=== PATIENT | female | born 1940 | race Caucasian/White ===

== ENCOUNTER → 2025-03-27 13:29 | Outpatient (REF) | payer OTHER, SELFPAY ==
[2025-03-27 14:27] LABS: % Basophils 1.4 % (0-2); % Eosinophils 1.6 % (0-6); % Immature Granulocytes 2.5 % (0-0.5); % Lymphocytes 6.4 % (20.5-51.1); % Neutrophils 81.1 % (42.2-75.2); Absolute Basophils 0.1 10^3/uL (0-0.2); Absolute Eosinophils 0.1 10^3/uL (0-0.7); Absolute Immature Granulocytes 0.2 10^3/uL (0-0.05); Absolute Lymphocytes 0.4 10^3/uL (1.2-3.4); Absolute Monocytes 0.5 10^3/uL (0.1-0.6); Absolute Neutrophils 5.2 10^3/uL (1.4-6.5); Hemoglobin 8.3 g/dL (12.0-16.0); Mean Corp Hgb Conc. 30.7 g/dL (33.0-37.0); Mean Corpuscular Hgb 25.9 pg (27.0-31.0); Mean Corpuscular Volume 84.1 fL (81.0-99.0); Mean Platelet Volume 9.7 fL (7.4-10.4); Nucleated Red Blood Cells % 0 %; Platelet Count 198 10^3/uL (130-400); Red Blood Cell Count 3.21 10^6/uL (4.20-5.40); Red Cell Dist. Width 23.9 % (11.5-14.5); White Blood Cell Count 6.4 10^3/uL (4.8-10.8)
[2025-03-27 14:28] LABS: Blood Urea Nitrogen 17 mg/dl (7-17); Calcium 8.9 mg/dl (8.4-10.2); Carbon Dioxide 30 mmol/L (22-30); Chloride 105 mmol/L (98-107); Glucose 85 mg/dl (70-99); Potassium 4.4 mmol/L (3.5-5.1); Sodium 136 mmol/L (135-145); eGFR > 60.00
== END ==
LOC: OLABP 13:29
PROVIDERS: ATTENDING PHYSICIAN Family Medicine
DX: J14 Pneumonia due to Hemophilus influenzae (principal); R57.9 Shock, unspecified; A41.9 Sepsis, unspecified organism; J96.01 Acute respiratory failure with hypoxia; D61.818 Other pancytopenia; I48.0 Paroxysmal atrial fibrillation; C69.50 Malignant neoplasm of unspecified lacrimal gland and duct; I27.20 Pulmonary hypertension, unspecified
CPT/HCPCS: 36415; 80048; 85025

== ENCOUNTER → 2025-03-30 10:30 | Outpatient (REF) | payer OTHER, SELFPAY ==
[2025-03-30 12:25] LABS: % Basophils 1.2 % (0-2); % Eosinophils 2.1 % (0-6); % Immature Granulocytes 0.9 % (0-0.5); % Monocytes 7.9 % (1.7-9.3); % Neutrophils 81.9 % (42.2-75.2); Absolute Basophils 0.1 10^3/uL (0-0.2); Absolute Eosinophils 0.1 10^3/uL (0-0.7); Absolute Immature Granulocytes 0.1 10^3/uL (0-0.05); Absolute Lymphocytes 0.3 10^3/uL (1.2-3.4); Absolute Monocytes 0.5 10^3/uL (0.1-0.6); Absolute Neutrophils 4.7 10^3/uL (1.4-6.5); Hematocrit 26.4 % (37.0-47.0); Hemoglobin 8.3 g/dL (12.0-16.0); Mean Corp Hgb Conc. 31.4 g/dL (33.0-37.0); Mean Corpuscular Hgb 26.3 pg (27.0-31.0); Mean Corpuscular Volume 83.8 fL (81.0-99.0); Mean Platelet Volume 9.9 fL (7.4-10.4); Nucleated Red Blood Cells % 0 %; Platelet Count 160 10^3/uL (130-400); Red Blood Cell Count 3.15 10^6/uL (4.20-5.40); White Blood Cell Count 5.7 10^3/uL (4.8-10.8)
[2025-03-30 12:36] LABS: Blood Urea Nitrogen 15 mg/dl (7-17); Calcium 8.8 mg/dl (8.4-10.2); Carbon Dioxide 28 mmol/L (22-30); Chloride 106 mmol/L (98-107); Glucose 82 mg/dl (70-99); Potassium 4.1 mmol/L (3.5-5.1); Sodium 138 mmol/L (135-145); Uric Acid 2.9 mg/dl (2.5-6.2); eGFR > 60.00
== END ==
LOC: OLABP 10:30
PROVIDERS: ATTENDING PHYSICIAN Family Medicine
DX: J14 Pneumonia due to Hemophilus influenzae (principal); R57.9 Shock, unspecified; A41.9 Sepsis, unspecified organism; J96.01 Acute respiratory failure with hypoxia; D61.818 Other pancytopenia; I48.0 Paroxysmal atrial fibrillation; C69.50 Malignant neoplasm of unspecified lacrimal gland and duct; I27.20 Pulmonary hypertension, unspecified
CPT/HCPCS: 80048; 83735; 84550; 85025

== ENCOUNTER → 2025-05-09 13:03 | Outpatient (REF) | payer OTHER, SELFPAY | LOC: PET 13:03 | PROVIDERS: ATTENDING PHYSICIAN Internal Medicine Hematology & Oncology | DX: C83.30 Diffuse large B-cell lymphoma, unspecified site (principal) | CPT/HCPCS: 78815; A9552 ==

== ENCOUNTER → 2025-05-10 15:56 | Outpatient (REF) | payer OTHER, SELFPAY | LOC: RCS 15:56 | PROVIDERS: ATTENDING PHYSICIAN Internal Medicine Hematology & Oncology; FAMILY PHYSICIAN Internal Medicine | DX: C83.30 Diffuse large B-cell lymphoma, unspecified site (principal) | CPT/HCPCS: 93306; 93356 ==

== ENCOUNTER → 2025-05-16 09:02 | Outpatient (REF) | payer OTHER, SELFPAY ==
[2025-05-16] VITALS (8 sets, daily range): BP systolic 44–165; BP diastolic 52–65
[2025-05-16 09:30] LABS: Hematocrit 36.8 % (37.0-47.0); Hemoglobin 11.5 g/dL (12.0-16.0); Mean Corp Hgb Conc. 31.3 g/dL (33.0-37.0); Mean Corpuscular Volume 84.6 fL (81.0-99.0); Nucleated Red Blood Cells % 0 %; Platelet Count 197 10^3/uL (130-400); Red Cell Dist. Width 13.7 % (11.5-14.5)
[2025-05-16 09:43] LABS: INR 1.09; PT 14.6 Sec (11.4-14.6)
[2025-05-16] MEDS: ATIVAN 0.5 MG PO (09:54)
== END ==
LOC: RADI 09:02
PROVIDERS: ATTENDING PHYSICIAN Internal Medicine Hematology & Oncology; FAMILY PHYSICIAN Internal Medicine; REFERRING PHYSICIAN Physician Assistant
DX: C83.30 Diffuse large B-cell lymphoma, unspecified site (principal); D68.8 Other specified coagulation defects
CPT/HCPCS: 36415; 38222; 77012; 85025; 85610; 88305; 88311; 88312; 88313

== ENCOUNTER → 2025-08-15 08:56 | Outpatient (REF) | payer OTHER, SELFPAY ==
[2025-08-15 09:27] LABS: Glucose 87 mg/dl (70-99)
== END ==
LOC: PET 08:56
PROVIDERS: Internal Medicine Hematology & Oncology; ATTENDING PHYSICIAN Nurse Practitioner Adult Health
DX: C83.30 Diffuse large B-cell lymphoma, unspecified site (principal)
CPT/HCPCS: 36415; 78815; 82947; A9552

== ENCOUNTER 2025-08-22 07:01 | Day surgery (SDC) | payer OTHER, SELFPAY ==
--- NOTE | 2025-08-22 07:44 | ITS.CL.IMPLP ---
[facility] - Implant Loop
Implant Loop
Procedure Report:
ILR implant
Date of Procedure: August 22, 2025
Patient : [id number]
Procedure: Insertable Loop Recorder Implant.
Indication: AF monitoring
Implant: Linq2: [employer]; Model# [id number]; Serial# [id number]
Technique: The patient was prepped and draped in the usual fashion.��Local anesthetic was applied to the left��prepectoral subcutaneous tissue. Preoperative sedation was given. A subcutaneous pocket was created with blunt dissection. Hemostasis was
excellent. The device was placed in the pocket. The incision was closed with 1 nonabsorbable suture. The skin was closed with steri-strips. The estimated blood��loss was minimal. There were no complications.
Final Programming: FVT 231 30/40 beats
����������������������������������VT 176 16 beats
����������������������������������Asystole 3 sec
����������������������������������Josep 30 bpm for 4 beats
����������������������������������AF On AF only.
Conclusion: Uncomplicated insertable loop implant.
Recommendation: Routine ILR care.
cc: Dr. Trinity Molina
== END 2025-08-22 08:20 | disposition home or self-care (01) ==
LOC: CATH 07:01
PROVIDERS: ATTENDING PHYSICIAN Internal Medicine Cardiovascular Disease; FAMILY PHYSICIAN Physician Assistant Medical; OTHER PHYSICIAN Internal Medicine Cardiovascular Disease
DX: Z09 Encounter for follow-up examination after completed treatment for conditions other than malignant neoplasm (principal); I48.0 Paroxysmal atrial fibrillation; E78.5 Hyperlipidemia, unspecified; E03.9 Hypothyroidism, unspecified; Z87.891 Personal history of nicotine dependence; Z79.890 Hormone replacement therapy
CPT/HCPCS: 33285; C1764